=== PATIENT | female | born 1975 | race Caucasian/White ===

== ENCOUNTER 2017-03-04 18:42 | Emergency (ER) | payer MEDICAID, SELFPAY ==
[2017-03-04 18:42] VITALS: BP 152/102; PULSE 102; RESP 18; TEMP 37.1; O2SAT 100; BMI 54.3
--- NOTE | 2017-03-04 20:43 | ED.DCSUM_ITS ---
- ER Visit Summary Date of Service: 03/04/17 Chief Complaint: [Wound] History of Present Illness: The patient is a 42 F [presents the emergency department with a left leg wound. She noticed it Thursday morning. She was seen in the emergency department on Thursday. She was prescribed clindamycin. She filled that Thursday. She has been taking it for a day and a half and it is getting worse. It slightly more red and swollen and more painful. No fevers chills or systemic symptoms she is not diabetic] Physical Examination: [] Heart rate 102 blood pressure elevated 152/102 other vitals within normal limits WN WD NAD PERRL EOMI MMM NECK supple and nontender, no masses RRR no murmur rub or gallop, no peripheral edema, symmetric radial pulses CTAB no respiratory distress ABDOMEN is soft and nontender, normal bowel sounds, no distension, no rebound or guarding Skin shows a small scab lesion in the left lateral leg just above the ankle there is minimal fluctuance she has a moderate amount of surrounding induration and cellulitis that is not circumferential Alert and Oriented x3, CN II-XII in tact, no motor or sensory deficits, gait normal No lymphadenopathy Test Results: [] Emergency Department Course and Treatment: [Area of cellulitis was demarcated with a pen. She was consented for incision and drainage. Incision and drainage was performed see procedure note. Patient was given wound care instructions. She was given doxycycline as she is allergic to Bactrim and Keflex. She was given precautions for which to return. She will follow-up with Dr. Carter within 48 hours Procedure note: Incision and drainage abscess left lower leg skin was cleansed with Betadine Skin was anesthetized with 3 cc of lidocaine locally Cruciate incision was made with moderate amount of purulent return loculations were broken was thoroughly irrigated under pressure Dressing was applied ] Treatment Plan: [] Disposition: [discharge] Impression: [abcess, i&d] This note was generated with [employer] dictation software. It may contain incorrect words, spelling, and punctuation that were not noted in review of the chart prior to signing ED Disposition - Plan for ED Patient: Chief Complaint: Cellulitis Referrals: Frank Pearson MD [Primary Care Provider] -
--- NOTE | 2017-03-04 20:45 | ED.DEP ---
ED Disposition - Plan for ED Patient: Chief Complaint: Cellulitis Instructions: ED Abscess IandD, Discharge Instructions for Cellulitis Prescriptions: Hydrocodone Bitart/Apap 5-325 [[place] 5MG-325MG] 1 tablet PO Q6H PRN PRN #10 tablet PRN Reason: Pain Doxycycline 100 mg PO BID #14 capsule Referrals: Frank Pearson MD [Primary Care Provider] - 2 Days
--- NOTE | 2017-03-04 20:49 | ED.DEP ---
ED Disposition - Plan for ED Patient: Chief Complaint: Cellulitis Instructions: Discharge Instructions for Cellulitis, ED Abscess IandD Prescriptions: Hydrocodone Bitart/Apap 5-325 [[place] 5MG-325MG] 1 tablet PO Q6H PRN PRN #10 tablet PRN Reason: Pain Doxycycline 100 mg PO BID #14 capsule Referrals: Frank Pearson MD [Primary Care Provider] - 2 Days
[2017-03-04 20:53] VITALS: PULSE 77; RESP 18; O2SAT 99
--- NOTE | 2017-03-04 20:54 | ED.RN ---
VERBAL AND WRITTEN D/C INSTRUCTIONS GIVEN. ALL QUESTIONS ANSWERED. GAIT SLOW AND STEADY OUT OF DEPARTMENT.
--- NOTE | 2017-03-04 20:57 | DCINST.ED_ITS ---
ED Disposition - Plan for ED Patient: Chief Complaint: Cellulitis Instructions: Discharge Instructions for Cellulitis, ED Abscess IandD Prescriptions: Hydrocodone Bitart/Apap 5-325 [[place] 5MG-325MG] 1 tablet PO Q6H PRN PRN #10 tablet PRN Reason: Pain Doxycycline 100 mg PO BID #14 capsule Referrals: Frank Pearson MD [Primary Care Provider] - 2 Days
== END 2017-03-04 20:54 | disposition home or self-care (01) ==
LOC: ED 19:34
PROVIDERS: Emergency Provider Emergency Medicine; Family Provider Family Medicine; PCP Family Medicine
DX: L03.116 Cellulitis of left lower limb (principal); F32.9 Major depressive disorder, single episode, unspecified
CPT/HCPCS: 10060; 99282

== ENCOUNTER 2017-05-22 23:20 | Emergency (ER) | payer MEDICAID, SELFPAY ==
[2017-05-22 23:21] VITALS: BP 159/84; PULSE 87; RESP 24; TEMP 36.7; O2SAT 97; BMI 53.1
--- NOTE | 2017-05-23 00:19 | ED.DCSUM_ITS ---
- ER Visit Summary Date of Service: 05/23/17 Chief Complaint: Right thumb injury History of Present Illness: The patient is a 42 F who cut her right thumb on a mandolin for 5 days ago. Patient states the area has become more painful and swollen. She is right-hand dominant and keeps bumping it on things. She has not had fever. She states she initially had some felipe colored fluid draining from the wound, but has not had any drainage the last several days. Physical Examination: Vital signs are significant for blood pressure 159/84, otherwise unremarkable. Patient sitting upright in bed no acute distress. She is nontoxic appearing. Head and neck examination is unremarkable. Heart is regular rate and rhythm. Lung sounds are clear. Abdomen is soft nontender. Right upper extremity examination was a 2 x 4 mm area of skin avulsion to the distal right thumb with surrounding edema. There is no erythematous streak. She has no focal fluctuance. She does have full range of motion. Test Results: [] Emergency Department Course and Treatment: Patient was instructed to soak her hand at least twice a day. She started on doxycycline, first dose given here. Treatment Plan: [] Disposition: Discharge Impression: Skin avulsion right thumb with localized infection This note was generated with [employer] dictation software. It may contain incorrect words, spelling, and punctuation that were not noted in review of the chart prior to signing ED Disposition - Plan for ED Patient: Disposition: Home or Assisted Living Chief Complaint: Wound Instructions: ED Wound Care Prescriptions: Doxycycline Monohydrate 100 mg PO BID #20 capsule Referrals: Frank Pearson MD [Primary Care Provider] - 1 Week
[2017-05-23] MEDS: Doxycycline 100 MG CAPSULE PO (00:33)
== END 2017-05-23 00:34 | disposition home or self-care (01) ==
LOC: ED 05-23 00:24
PROVIDERS: Emergency Provider Emergency Medicine; Family Provider Family Medicine; PCP Family Medicine
DX: S61.001D Unspecified open wound of right thumb without damage to nail, subsequent encounter (principal); L08.9 Local infection of the skin and subcutaneous tissue, unspecified; W26.8XXD Contact with other sharp object(s), not elsewhere classified, subsequent encounter; F32.9 Major depressive disorder, single episode, unspecified; Z86.14 Personal history of Methicillin resistant Staphylococcus aureus infection; Z87.891 Personal history of nicotine dependence
CPT/HCPCS: 99283

== ENCOUNTER 2017-07-30 19:40 | Emergency (ER) | payer MEDICAID, SELFPAY ==
[2017-07-30 19:41] VITALS: BP 154/91; PULSE 87; RESP 16; TEMP 36.6; O2SAT 98; BMI 44.1
--- NOTE | 2017-07-30 20:40 | ED.DCSUM_ITS ---
- ER Visit Summary Date of Service: 07/30/17 Chief Complaint: Rash History of Present Illness: The patient is a 42 F who presents with a rash on her face and neck. Began on Thursday (4 days ago). She was sweating was felt at urgent care yesterday that this could be a yeast infection. She also notes what appears to be a superficial abscess in the right arm and she was put on clindamycin at the urgent care. She is also placed on a Medrol pack. Patient states that spread significantly onto the face and on the neck as well as on the arms. She states is extremely itchy. She denies any new contacts. Physical Examination: Afebrile vital signs are stable On the face there is a blanching rash with no significant increase in heat this involves the forehead and the maxillary sinus regions. There is a rash in the skin folds of the neck could be consistent with a skin candidiasis. There are several excoriated lesions on the arm that looked like maybe they were small pustules and excoriated. Emergency Department Course and Treatment: We will give the patient a dose of Kenalog. I do not believe is been enough time for the medication she was prescribed yesterday to work. I have asked that she follow-up with her doctor early next week or return here if worsening. Impression: 1. Dermatitis This note was generated with [employer] dictation software. It may contain incorrect words, spelling, and punctuation that were not noted in review of the chart prior to signing ED Disposition - Plan for ED Patient: Disposition: Home or Assisted Living Chief Complaint: Rash Instructions: ED Dermatitis Non Specific Rash Referrals: Frank Pearson MD [Primary Care Provider] - 3-5 Days
[2017-07-30] MEDS: Triamcinolone Acetonide 40 MG/ML Vial 80 MG IM (20:47)
[2017-07-30 21:12] VITALS: RESP 16
--- NOTE | 2017-07-30 21:12 | ED.RN ---
REVIEWED D/C INSTRUCTIONS, FOLLOW UP CARE, AND S/S THAT WOULD WARRANT A RETURN TO THE ED WITH PT. PT VERBALIZED AN UNDERSTANDING AND DENIES FURTHER QUESTIONS FOR THIS RN. PT SKIN P/W/D, RESP EVEN AND UNLABORED, PT A7O X 3, NO DISTRESS NOTED. PT AMBULATED OUT OF ED, GAIT STEADY.
== END 2017-07-30 21:13 | disposition home or self-care (01) ==
PROVIDERS: Emergency Provider Emergency Medicine; Family Provider Family Medicine; PCP Family Medicine
DX: L30.9 Dermatitis, unspecified (principal)
CPT/HCPCS: 99282

== ENCOUNTER 2017-08-01 14:27 | Emergency (ER) | payer MEDICAID, SELFPAY ==
[2017-08-01 14:28] VITALS: BP 159/81; PULSE 85; RESP 17; TEMP 36.7; O2SAT 98; BMI 51.8
--- NOTE | 2017-08-01 14:47 | ED.VISSUMM ---
- ER Visit Summary Date of Service: 08/01/17 Chief Complaint: Right facial swelling History of Present Illness: The patient is a 42 F who started having allergic reaction to her face and neck on Thursday. She does not know any medication she may be allergic to. She does have a history of hayfever. She was seen in urgent care started on a Medrol Dosepak. She was also using steroid cream to her neck and an antifungal. She was then seen ER on had a Kenalog shot is continued her steroids. She states her right facial swelling his return is a little worse. She also is having itching. She denies any tongue or lip swelling. Any trouble breathing or wheezing. No trouble swallowing. She does not believe she has never had a reaction like this before. She is currently on clindamycin that was started on Thursday due to a skin infection she has had a history of being a MRSA carrier. The allergic reaction facial swelling started on Thursday before she started the antibiotic. Physical Examination: Well-appearing middle-age female. Vital signs are stable afebrile. She does not look septic or toxic. She does have right periorbital and right facial swelling. Also to her neck. They are red. No sniffing tenderness. She is able to open close both eyes. There is no signs of any type of right eye infection. Neck there is no lymphadenopathy but she has inflamed swollen tissues in the anterior aspect of her neck consistent with allergic reaction. No abscess. Lungs clear to auscultation bilaterally. Heart regular rhythm no murmur. Abdomen obese soft nontender normal bowel sounds no peritoneal signs. She is moving all 4 extremities. Neurovascularly intact. Neurologically she is awake and alert without focal motor deficits. Test Results: None Emergency Department Course and Treatment: Patient seems to have an obvious allergic reaction to her face and neck but of uncertain cause. I do not think she is on enough steroids at this time the urgent care prescribed her a Medrol Dosepak which currently she is only on 12 mg a day. Have her stop that. Give her a dose of prednisone here and place her on 40 mg a day for the next 7 days. She states far she knows she is not diabetic but she did have gestational diabetes and that the current steroids have released her blood sugars which will need to continually need to watch. Treatment Plan: Prednisone 40 g a day for 7 days. Ice to the right side of her face. Motrin for swelling Benadryl for swelling and itching. Watch her blood sugars closely. And follow-up with her primary care physician. Disposition: Discharge Impression: Acute right-sided facial swelling and rash and also on her neck secondary to acute allergic reaction of uncertain etiology This note was generated with [employer] dictation software. It may contain incorrect words, spelling, and punctuation that were not noted in review of the chart prior to signing ED Disposition - Plan for ED Patient: Chief Complaint: Allergic Reaction Referrals: Frank Pearson MD [Primary Care Provider] -
--- NOTE | 2017-08-01 14:51 | ED.DEP ---
ED Disposition - Plan for ED Patient: Disposition: Home or Assisted Living Chief Complaint: Allergic Reaction Instructions: ED Allergic Reaction Local Other Prescriptions: Prednisone [Deltasone] 40 mg PO DAILY 7 Days #7 tab Referrals: Frank Pearson MD [Primary Care Provider] - 3-5 Days if not improving Additional Instructions: Ice pack to decrease the swelling in her face. Motrin also decrease inflammation along with Benadryl for allergic reaction and itching. Prednisone 40 times a day till gone or rash resolves and swelling resolves for at least 2 days. Watch her blood sugars closely. Due to your history of prior gestational diabetes with elevated blood sugars she may be coming diabetic and need to follow this up with your primary care physician to be further evaluated.
[2017-08-01] MEDS: predniSONE 20 MG Tablet 40 MG PO (15:08)
== END 2017-08-01 15:12 | disposition home or self-care (01) ==
LOC: ED 15:02
PROVIDERS: Emergency Provider Emergency Medicine; Family Provider Family Medicine; PCP Family Medicine
DX: R21 Rash and other nonspecific skin eruption (principal); R22.0 Localized swelling, mass and lump, head; Z22.322 Carrier or suspected carrier of Methicillin resistant Staphylococcus aureus; F32.9 Major depressive disorder, single episode, unspecified
CPT/HCPCS: 99283

== ENCOUNTER → 2018-11-22 06:41 | Outpatient (CLI) | payer MEDICAID, SELFPAY ==
--- NOTE | 2018-11-22 06:44 | CT_ITS ---
STUDY: CT MAXILLOFACIAL SINUSES REASON FOR EXAM: Female, 43 years old. Chronic sinusitis RADIATION DOSAGE (If Supplied By Facility): CTDIvol = ( 33.06 ) mGy, DLP = ( 763.6 ) mGycm TECHNIQUE: The patient was scanned in a multi detector CT scanner. High resolution axial imaging was performed without the administration of intravenous contrast material. Sagittal and coronal images were reconstructed. Individualized dose optimization techniques were used for this CT. COMPARISON: None. FINDINGS: FRONTAL SINUSES: Normal aeration, without mucosal inflammatory disease. ETHMOIDAL SINUSES: Normal aeration, without mucosal inflammatory disease. MAXILLARY SINUSES: There is mucosal thickening of the left maxillary sinus and evidence of prior surgery in both maxillary sinuses. SPHENOIDAL SINUSES: Normal aeration, without mucosal inflammatory disease. There is patency of the bilateral maxillary infundibuli with normal uncinate processes, ethmoid bullae, and hiatus semilunaris. There is mucosal thickening of the left-sided inferior turbinate with skirts the inferior aspect of the left nasal canal. There is minimal narrowing of the nasal passageway. Diminutive bilateral middle inferior turbinates. Normal midline nasal septum. The visualized osseous structures are normal. The visualized bilateral orbital contents are normal. CT/Sinus/Facial Bone IMPRESSION: Chronic left maxillary sinusitis postoperative change. Findings as detailed above. Electronically Signed: Dixie Perez MD at 23:17 EDT Tel , Service support ,
== END ==
PROVIDERS: Family Provider Family Medicine; PCP Family Medicine; Referring Provider Otolaryngology; Visit Provider Otolaryngology
DX: J32.2 Chronic ethmoidal sinusitis (principal)
CPT/HCPCS: 70486

== ENCOUNTER → 2018-12-13 15:43 | Outpatient (CLI) | payer MEDICAID, SELFPAY | PROVIDERS: Family Provider Family Medicine; PCP Family Medicine; Referring Provider Otolaryngology; Visit Provider Otolaryngology | DX: J32.0 Chronic maxillary sinusitis (principal) | CPT/HCPCS: 87070; 87077; 87186; 87205 ==

== ENCOUNTER 2019-04-21 21:44 | Emergency (ER) | payer MEDICAID, SELFPAY ==
[2019-04-21 21:46] VITALS: BP 136/83; PULSE 127; RESP 16; TEMP 37.8; O2SAT 99; BMI 53.6
--- NOTE | 2019-04-21 22:31 | ED.VIS.GEN ---
History of Present Illness Chief Complaint: Fever Informant: Patient Onset: Today Current Severity: Moderate Maximum Severity: Moderate Narrative: Patient presents with chest congestion, cough, fever, body aches. She states that she was staying at [facility] this past week with her daughter who was admitted. She states her return there there she tends to get a lot of congestion secondary to the dry air. Today she developed body aches and fever. She has not yet taken anything for her symptoms. - Past Medical History (1) Migraines Status: Chronic (2) Depression Status: Chronic (3) Hx of cholecystectomy Status: Chronic Past Medical History - Allergies and Home Meds Allergies/Adverse Reactions: Allergies cephalexin monohydrate [From Keflex] Allergy (Verified 04/21/19 21:48) Rash latex Adverse Reaction (Verified 04/21/19 21:48) Rash sulfamethoxazole [From Bactrim] Adverse Reaction (Verified 04/21/19 21:48) Other trimethoprim [From Bactrim] Adverse Reaction (Verified 04/21/19 21:48) Other FLU SHOT Allergy (Uncoded 04/21/19 21:48) Other Primary Care Physician: Frank Pearson MD [Primary Care Provider] - Prior records reviewed: Yes Lives: With Family Smoking Status: Never smoker Review of Systems General: Reports: Fever Eyes: Denies: Visual changes - bilaterally ENT: Reports: Sore throat. Denies: Bilateral ear pain Cardiovascular: Denies: Chest pain Respiratory: Reports: Dyspnea, Cough, Sputum Gastrointestinal: Reports: Nausea. Denies: Abdominal pain, Vomiting Musculoskeletal: Reports: Myalgias. Denies: Extremity Pain Skin: Denies: Rash Neurological: Reports: Headache Hematologic: Denies: Easy bruising, Easy bleeding Allergy: Denies: Uticaria Physical Exam Vital Signs/Narrative: Vital Signs Temp Pulse Resp BP Pulse Ox 04/21/19 21:46 100.0 F H 127 H 16 136/83 H 99 Inital Vital Signs reviewed: Yes General: Well nourished, Well developed Head: Normocephalic ENT: Moist mucous membranes Neck: Supple Cardiovascular: Regular rhythm, Tachycardia Respiratory: No distress, CTA bilaterally Abdomen: Soft, Nontender Extremities: Nontender Skin: Normal color, No rash Neurological: Alert, Oriented x3 Psychological: Normal affect Diagnostic/Tx/Re-eval Impressions Chest X-Ray 04/21/19 22:35 IMPRESSION: No evidence of focal airspace disease. Electronically Signed: Mele Guidry DO at 23:01 EDT , Service support , 04/21/19 22:35 Chest 1 View (Portable) [RAD] Stat 04/21/19 22:45 Mucosa - Nose Influenza Types A,B Direct FA ([facility]) - Final Influenzae A - Medical Decision Making Patient was given naproxen and Tylenol. Test results discussed with her. She is interested in taking Tamiflu. First dose will be given here and prescription be sent to the pharmacy for her. ED Disposition - Plan for ED Patient: Disposition: Home or Assisted Living Diagnosis: Influenza A Instructions: INFLUENZA (Adult) Prescriptions: Oseltamivir Phosphate [Tamiflu] 75 mg PO BID #10 cap Transmission Status: Pending to [facility]/pharmacy #[id number] Referrals: Frank Pearson MD [Primary Care Provider] - 1 Week if not improving
--- NOTE | 2019-04-21 22:35 | RAD_ITS ---
STUDY: X-RAY CHEST REASON FOR EXAM: Female, 44 years old. COUGH FEVER WITH CHEST CONGESTION AND SOB TECHNIQUE: Single AP portable view of the chest. COMPARISON: 26 January 2017 FINDINGS: The lungs are clear and expanded. Calcified granuloma overlies the right upper mid lung. There is no demonstrated pleural abnormality. Normal size heart. Normal mediastinum and raji. Normal visualized pulmonary arteries. Normal visualized aortic arch and descending thoracic aorta. Normal visualized thoracic spine. Normal visualized ribs, clavicles, and shoulders. There is no demonstrated abnormality of the visualized soft tissue structures of the upper abdomen. RAD/Chest 1 View (Portable) IMPRESSION: No evidence of focal airspace disease. Electronically Signed: Mele Guidry DO at 23:01 EDT , Service support ,
[2019-04-21] MEDS: Naproxen 500 MG Tablet PO (23:02)
[2019-04-21 23:06] VITALS: BP 148/90; PULSE 120; PULSE 122; RESP 17; RESP 18; TEMP 38.6; O2SAT 100; O2SAT 99
[2019-04-21] MEDS: Acetaminophen 500 MG Tablet 1000 MG PO (23:58)
[2019-04-21 23:59] VITALS: PULSE 135; RESP 15; O2SAT 98
[2019-04-21] MEDS: Oseltamivir Phosphate 75 MG Capsule PO (23:59)
== END 2019-04-22 | disposition home or self-care (01) ==
PROVIDERS: Emergency Provider Emergency Medicine; PCP Family Medicine
DX: J10.1 Influenza due to other identified influenza virus with other respiratory manifestations (principal); F32.9 Major depressive disorder, single episode, unspecified; G43.909 Migraine, unspecified, not intractable, without status migrainosus; Z88.1 Allergy status to other antibiotic agents; Z88.2 Allergy status to sulfonamides; Z90.49 Acquired absence of other specified parts of digestive tract
CPT/HCPCS: 71045; 87804; 99283

== ENCOUNTER 2019-10-28 12:08 | Emergency (ER) | payer MEDICAID, SELFPAY ==
[2019-10-28 12:08] VITALS: BP 152/91; PULSE 98; RESP 18; TEMP 35.8; O2SAT 98; BMI 51.6
--- NOTE | 2019-10-28 12:22 | ED.DEP ---
ED Disposition - Plan for ED Patient: Instructions: ED LUMBAR SPRAIN/STRAIN Prescriptions: Hydrocodone Bitart/Apap 5-325 [[place] 5MG-325MG] 1 tab PO Q6H PRN PRN 3 Days #8 tab PRN Reason: Pain Prescription Printed Referrals: Frank Pearson MD [Primary Care Provider] -
--- NOTE | 2019-10-28 12:25 | ED.DCSUM_ITS ---
- ER Visit Summary Date of Service: 10/28/19 Chief Complaint: Back pain History of Present Illness: The patient is a 44 F presenting with back pain. Patient states this started on Thursday. She states she reached forward to pick something up and had sudden pain in her lower back. She did not fall to the g round. She has tried Flexeril and ibuprofen since that time. She denies numbness or weakness. Denies bowel or bladder incontinence. Denies fever. She is able to ambulate with pain. Physical Examination: Vitals are stable. Patient is afebrile. Alert no acute distress. HEENT exam is unremarkable. Neck is supple. Lungs are clear and equal bilaterally. Heart is regular rate and rhythm. Abdomen is soft nontender nondistended. Back: Left paraspinal lumbar muscle tenderness, no midline tenderness. Straight leg raise negative bilaterally. Extremities are unremarkable. Skin is warm and dry. No focal neurologic deficit. Normal strength and sensation Remainder of exam is unremarkable. Emergency Department Course and Treatment: She drove herself to the emergency department. Patient was given Toradol IM. She was given prescription for short course of [place]. Advised to continue ibuprofen at home. Advised to follow-up with her primary care physician. Advised return to the ED for worsening complaints. Disposition: Discharge home Impression: Lumbar strain This note was generated with [employer] dictation software. It may contain incorrect words, spelling, and punctuation that were not noted in review of the chart prior to signing ED Disposition - Plan for ED Patient: Instructions: ED LUMBAR SPRAIN/STRAIN Prescriptions: Hydrocodone Bitart/Apap 5-325 [[place] 5MG-325MG] 1 tab PO Q6H PRN PRN 3 Days #8 tab PRN Reason: Pain Prescription Printed Referrals: Frank Pearson MD [Primary Care Provider] -
[2019-10-28] MEDS: Ketorolac 60 MG/2 ML Vial IM (12:37)
== END 2019-10-28 12:53 | disposition home or self-care (01) ==
PROVIDERS: Emergency Provider Emergency Medicine; PCP Family Medicine
DX: S39.012A Strain of muscle, fascia and tendon of lower back, initial encounter (principal); X58.XXXA Exposure to other specified factors, initial encounter; E11.9 Type 2 diabetes mellitus without complications; Z90.49 Acquired absence of other specified parts of digestive tract; F32.9 Major depressive disorder, single episode, unspecified
CPT/HCPCS: 99282

== ENCOUNTER 2019-12-14 21:14 | Emergency (ER) | payer MEDICAID, SELFPAY ==
[2019-12-14 21:15] VITALS: BP 158/95; PULSE 90; RESP 18; TEMP 36.3; O2SAT 98; BMI 51.3
--- NOTE | 2019-12-14 21:41 | ED.DCSUM_ITS ---
History of Present Illness Chief Complaint: Abscess Informant: Patient Narrative: Patient presents with facial abscess for the past few days no fever chills no difficulty swallowing. She had a pimple she popped it and now has pain and induration to left lower face. No neck involvement. Past Medical History - Allergies and Home Meds Allergies/Adverse Reactions: Allergies cephalexin monohydrate [From Keflex] Allergy (Verified 12/14/19 21:17) Rash latex Adverse Reaction (Verified 12/14/19 21:17) Rash sulfamethoxazole [From Bactrim] Adverse Reaction (Verified 12/14/19 21:17) Other trimethoprim [From Bactrim] Adverse Reaction (Verified 12/14/19 21:17) Other FLU SHOT Allergy (Uncoded 12/14/19 21:17) Other Primary Care Physician: Frank Pearson MD [Primary Care Provider] - Past Medical History: - - Diabetes Smoking Status: Former smoker Review of Systems General: Denies: Fever Eyes: Denies: Visual changes - bilaterally ENT: Reports: - - Facial abscess Cardiovascular: Reports: Chest pain Musculoskeletal: Denies: Extremity Pain Skin: Reports: Abscess Neurological: Denies: Headache Hematologic: Denies: Easy bruising, Easy bleeding Physical Exam Vital Signs/Narrative: Vital Signs Temp Pulse Resp BP Pulse Ox 12/14/19 21:15 97.4 F L 90 18 158/95 H 98 General: Well nourished, Well developed ENT: Moist mucous membranes, - - There is a 2 cm left lower facial abscess with slight surrounding cellulitis no intraoral abscess, normal soft palate. No neck involvement normal voice Neck: Supple, Nontender, No lymphadenopathy Cardiovascular: Regular rate Skin: - - Abscess and cellulitis as above Neurological: Normal Strength, Normal Sensation Diagnostic/Tx/Re-eval - Medical Decision Making Abscess was drained. Patient will be discharged in stable condition with antibiotics Procedures Procedure(s): Incision and drainage. 1% lidocaine, 3 mL of injected through a 25-gauge needle. I used a #10 blade. Pus was expectorated. Loculations broken. Patient tolerated procedure well ED Disposition - Plan for ED Patient: Disposition: Home or Assisted Living Instructions: ED Abscess Incision And Drainage Prescriptions: Clindamycin [Cleocin] 300 mg PO 4X/DAY #80 cap Transmission Status: Pending to [facility]/pharmacy #[id number] Referrals: Frank Pearson MD [Primary Care Provider] - 3-5 Days
[2019-12-14] MEDS: Clindamycin HCl 150 MG Capsule 300 MG PO (21:50)
== END 2019-12-14 21:55 | disposition home or self-care (01) ==
PROVIDERS: Emergency Provider Emergency Medicine; PCP Family Medicine
DX: L02.01 Cutaneous abscess of face (principal); E11.9 Type 2 diabetes mellitus without complications; Z88.1 Allergy status to other antibiotic agents; Z88.2 Allergy status to sulfonamides
CPT/HCPCS: 99283

== ENCOUNTER 2020-09-11 09:18 | Emergency (ER) | payer MEDICAID, SELFPAY ==
[2020-09-11 09:19] VITALS: BP 163/90; PULSE 82; RESP 18; TEMP 36.2; O2SAT 98; BMI 52.7
--- NOTE | 2020-09-11 09:34 | ED.VIS.LOWEX ---
HPI History of Present Illness Chief Complaint: Lower Extremity Injury Detail of Chief Complaint: Atraumatic right hip pain Informant: patient Occured/Mechanism Mechanism/Context: Yes unknown Onset/Context/Timing Onset: Yesterday Context: Gradual Onset Timing: Continuous Quality of Pain: Sharp and Aching Current Severity: Mild Maximum Severity: Mild Associated Symptoms Associated Symptoms: Negative for Parasthesia, Weakness and Loss of Funtion Narrative Narrative: 45-year-old female history of [id number] diabetes, hypothyroidism and anemia. States she had atraumatic right hip pain beginning last evening. Gradual onset. Worse with movement. Initially occurred when she was stepping out of her car. Denies any fall injury or any type of trauma to remember. No fever or redness. No prior hip surgery. Denies back pain. Prior similar symptoms: No Recent Illness/Hospitalization: No [facility] Medical History Carpal tunnel syndrome of right wrist Hyperlipidemia Hypothyroid Migraines Plantar fasciitis of left foot Home Medications Venlafaxine Xr [Effexor Xr] 75 mg PO DAILY 06/21/15 [History Last Taken 04/21/19] venlafaxine 150 mg PO DAILY 01/26/17 [History Last Taken 04/21/19] metformin 500 mg PO BID 04/21/19 [History Last Taken 04/21/19] clindamycin HCl 300 mg PO 4X/DAY #80 cap 12/14/19 [Rx Last Taken Unknown] levothyroxine 75 mcg PO DAILY 12/14/19 [History Last Taken Unknown] methocarbamol 750 mg PO TID 12/14/19 [History Last Taken Unknown] aspirin 81 mg PO DAILY 09/11/20 [History Last Taken Unknown] cholecalciferol (vitamin D3) 125 mcg PO DAILY 09/11/20 [History Last Taken Unknown] epinephrine 0.15 mg IM Q30M PRN 09/11/20 [History Last Taken Unknown] ferrous sulfate 324 mg PO DAILY 09/11/20 [History Last Taken Unknown] fexofenadine 180 mg PO DAILY 09/11/20 [History Last Taken Unknown] hydrocodone-acetaminophen 1 tab PO Q4H PRN 4 Days #14 tab 09/11/20 [Rx Last Taken Unknown] Allergy/AdvReac Type Severity Reaction Status Date / Time cephalexin monohydrate Allergy Rash Verified 09/11/20 09:19 [From Keflex] latex AdvReac Rash Verified 09/11/20 09:19 sulfamethoxazole AdvReac Other Verified 09/11/20 09:19 [From Bactrim] trimethoprim [From Bactrim] AdvReac Other Verified 09/11/20 09:19 FLU SHOT Allergy Other Uncoded 09/11/20 09:19 Surgical History H/O carpal tunnel repair History of cholecystectomy Social History Smoking Status: Never smoker ROS ROS ED ROS Narrative Denies recent illness. Review of Systems ROS Unobtainable: Denies due to encephalopathy Constitutional Constitutional ED: Denies chills or fever(s) Eyes Eyes: Denies change in vision ENT ENT ED: Denies ear pain Cardiovascular Cardiovascular: Denies chest pain Respiratory/Chest Respiratory/Chest: Denies dyspnea Gastrointestinal Gastrointestinal: Denies abdominal pain, diarrhea, nausea or vomiting Genitourinary Genitourinary ED: Denies dysuria Musculoskeletal Musculoskeletal: Denies myalgias Integumentary Denies rash Neurologic Neurologic: Denies headache(s) Psychiatric Psychiatric: Denies depression Endocrine Endocrinology: Denies polyuria Hematologic/Lymphatic Hematologic/Lymphatic: Denies easy bruising Allergic/Immunologic Allergic/Immunologic ED: Denies urticaria EXAM Physical Exam Narrative Exam Narrative: Middle-aged female no acute distress. Vital signs stable. Afebrile. Lungs are clear. Heart regular rhythm no murmur. Abdomen obese but soft nontender normal bowel sounds no peritoneal signs. Back spine nontender. SI joints nontender. She has mild tenderness to her right hip primarily in the groin region. She has mild discomfort with range of motion but has normal range of motion. There is no redness or warmth. There is no swelling. She has full flexion-extension of the right hip, knee ankle and foot. Dorsi plantar flexion of the right foot. Normal DP pulse and sensation. Neurologic exam unremarkable. Const Vital Signs: 09/11/20 09:19 Temperature 97.1 F L Temperature Source Temporal Pulse Rate 82 Respiratory Rate 18 Blood Pressure 163/90 H Blood Pressure Mean 114 Pulse Ox 98 Oxygen Delivery Method Room Air Positive well nourished and well developed General Appearance ED: well developed and NAD HEENT Reports moist mucous membranes normocephalic and atraumatic; Negative for trauma or tenderness Eyes PERRL Neck full ROM and supple Thyroid: Negative for tender Chest Wall inspection of chest normal and palpation of chest normal Resp normal respiratory effort, no retractions and clear to auscultation bilaterally Auscultation: Negative for rales, rhonchi or wheezes Cardio regular rate, regular rhythm, S1 normal heart sound, S2 normal heart sound and no murmurs GI non-tender, non-distended and no masses Auscultation: normoactive bowel sounds Palpation: soft; Negative for tender or guarding Back/Spine no CVA tenderness General Back: Negative for CVA tenderness Cervical Spine: Negative for cervical spine tenderness Thoracic Spine / Upper Back: Negative for thoracic spinal tenderness Lumbar Spine / Lower Back: Negative for lumbar spinal tenderness Extremity normal to inspection and full ROM Extremity Narrative: Tender right hip. No redness or swelling. Normal range of motion. General Extremety ED: Negative for cyanosis or edema General Extremity: Negative for cyanosis or edema Psych mental status grossly normal Skin Rashes: no rashes MDM MDM MDM Narrative Medical decision making narrative: 45-year-old female atraumatic right hip pain. Will be treated with Motrin for pain. X-rays being obtained. X-rays were unremarkable. I reviewed examined the patient again at 1215. No change. The hip itself is not red or swollen. The anterior inguinal area there is no hernia or mass or tenderness. Patient be discharged home she already uses ibuprofen 3 times a day. She sees [facility] orthopedics here in [place]. She will be written for 10 Vicodin for pain. Radiography Diagnostic Testing: Radiology Impression Hip/Pelvis X-Ray 09/11/20 09:50 IMPRESSION: Mild arthrosis of the right hip. Electronically Signed: Michele Rivers MD at 10:32 EDT Tel , Service support , Pelvis and right hip x-ray 3 views interpreted by myself the radiologist shows chronic changes but no acute process. No fracture. No significant arthritis. No dislocation. Discharge Plan Triage Chief Complaint: Lower Extremity Injury ED Provider: Nathan Hernandez Dx/Rx/DC Orders Clinical Impression: Acute hip pain Instructions: ED Hip Strain Prescriptions: New hydrocodone-acetaminophen 5-325 mg tablet 1 tab PO Q4H PRN (Reason: pain) 4 Days Qty: 14 RF: 0 No Action Venlafaxine Xr [Effexor Xr] 75 MG capsule 75 mg PO DAILY RF: 0 venlafaxine 150 MG capsule 150 mg PO DAILY RF: 0 metformin 500 MG tablet 500 mg PO BID RF: 0 methocarbamol 750 MG tablet 750 mg PO TID RF: 0 levothyroxine 50 MCG tablet 75 mcg PO DAILY RF: 0 clindamycin HCl 150 MG capsule 300 mg PO 4X/DAY Qty: 80 RF: 0 epinephrine 0.15 mg/0.3 mL Auto-Injector 0.15 mg IM Q30M PRN (Reason: Anaphylaxis) RF: 0 fexofenadine 180 mg Tablet 180 mg PO DAILY RF: 0 aspirin 81 mg Tablet,Delayed Release (Dr/Ec) 81 mg PO DAILY RF: 0 ferrous sulfate 324 mg (65 mg iron) Tablet,Delayed Release (Dr/Ec) 324 mg PO DAILY RF: 0 cholecalciferol (vitamin D3) 125 mcg (5,000 unit) Tablet 125 mcg PO DAILY RF: 0 Primary Care Provider: Frank Pearson Referrals: Luigi Ortiz MD [NON-STAFF] - As soon as possible Frank Pearson MD [Primary Care Provider] - Activity Restrictions/Additional Instructions: Ice to the area that hurts in the right hip. Continue your Motrin for pain and inflammation. [place] for more severe pain. Call follow-up with the [facility] orthopedic people with a you see. We do not have a specific cause for the pain today. Disposition Disposition: Home, Self Care
--- NOTE | 2020-09-11 09:50 | RAD_ITS ---
STUDY: X-RAY - PELVIS AND RIGHT HIP REASON FOR EXAM: Right hip pain, no specific injury. TECHNIQUE: 2 views of the pelvis and hip. COMPARISON: Radiographs 01/26/2017. FINDINGS: Normal visualized soft tissue structures. Normal bilateral iliac wings, sacroiliac joints and visualized sacrum. Normal bilateral superior and inferior pubic rami. Normal pubic symphysis. Normal bilateral ischial tuberosities. Normal visualized femoral head. Normal acetabulum. There are small marginal osteophytes and mild joint space narrowing of the superior medial right hip joint. RAD/HIP, UNI W/ Pelvis 2-3 Views IMPRESSION: Mild arthrosis of the right hip. Electronically Signed: Michele Rivers MD at 10:32 EDT Tel , Service support ,
[2020-09-11] MEDS: Ibuprofen 400 MG Tablet 800 MG PO (10:26)
== END 2020-09-11 12:29 | disposition home or self-care (01) ==
PROVIDERS: Emergency Provider Emergency Medicine; PCP Family Medicine
DX: M25.551 Pain in right hip (principal); Z90.49 Acquired absence of other specified parts of digestive tract; E78.5 Hyperlipidemia, unspecified; E03.9 Hypothyroidism, unspecified; E11.9 Type 2 diabetes mellitus without complications; Z79.82 Long term (current) use of aspirin; Z79.84 Long term (current) use of oral hypoglycemic drugs
CPT/HCPCS: 73502; 99283

== ENCOUNTER 2022-08-07 04:02 | Emergency (ER) | payer MEDICAID, SELFPAY ==
[2022-08-07 04:09] VITALS: BP 114/70; PULSE 77; RESP 16; TEMP 36.2; O2SAT 99; BMI 48.9
--- NOTE | 2022-08-07 04:20 | EKG12_ITS ---
Test Reason : DYSRHYTHMIA Blood Pressure : / mmHG Vent. Rate : 071 BPM Atrial Rate : 071 BPM P-R Int : 162 ms QRS Dur : 090 ms QT Int : 410 ms P-R-T Axes : 027 -12 039 degrees QTc Int : 445 ms Normal sinus rhythm Cannot rule out Anterior infarct , age undetermined Abnormal ECG Confirmed by DENI RODRIGUEZ, WILL ([id number]), news assignment editor CORNELL MACHADO ([id number]) on 08/07/2022 10:45:54 AM Referred By: Confirmed By:WILL CHEEMA MD
--- NOTE | 2022-08-07 04:20 | RAD_ITS ---
STUDY: X-RAY CHEST REASON FOR EXAM: Female, 47 years old. Chest pain TECHNIQUE: Single AP portable view of the chest. COMPARISON: April 21, 2019 chest x-ray FINDINGS: The lungs are clear and expanded. There is no demonstrated pleural abnormality. Normal size heart. Normal mediastinum and raji. Normal visualized pulmonary arteries. Normal visualized aortic arch and descending thoracic aorta. There are diffuse degenerative changes of the visualized thoracic spine. Normal visualized ribs, clavicles, and shoulders. There is no demonstrated abnormality of the visualized soft tissue structures of the upper abdomen. RAD/Chest 1 View (Portable) IMPRESSION: No demonstrated acute cardiopulmonary process. Electronically Signed: Dixie Perez MD at 5:12 EDT ,
--- NOTE | 2022-08-07 04:29 | ED.VIS.CHEST ---
HPI History of Present Illness Chief Complaint: Palpitations Detail of Chief Complaint: Pain-free. No chest pain. Informant: patient Onset/Context/Timing Onset: Days Activity at onset: gradual Timing: Intermittent Narrative Narrative: 47-year-old female history of hypothyroidism and diabetes. States the last several days with exertion she notices palpitations. Really denies any shortness of breath. Denies any chest pain. No leg pain or swelling. No recent travel, surgery or immobilization. No history of cardiac disease or dysrhythmias. Bowel 1 to 2 weeks ago she had some diarrhea but that is all since resolved. Denies any melena. No hemoptysis. Prior Similar Symptoms: No Recent Illness/Hospitalization: No CVD Risk Factors: Positive for Diabetes PE Risk Factors: Negative for Recent Travel/Surgery, Recent Immobilization, Prior DVT or PE, Cancer or OCP + Smoking + >/=35 TAD Risk Factors: Negative for Marfan's Syndrome [facility] Medical History Carpal tunnel syndrome of right wrist Hyperlipidemia Hypothyroid Migraines Plantar fasciitis of left foot Home Medications Venlafaxine Xr [Effexor Xr] 75 mg PO DAILY 06/21/15 [History Last Taken 04/21/19] venlafaxine 150 mg capsule,extended release 24 hr 150 mg PO DAILY 01/26/17 [History Last Taken 04/21/19] metformin 500 mg tablet,extended release 24 hr 500 mg PO BID 04/21/19 [History Last Taken 04/21/19] clindamycin HCl 150 mg capsule 300 mg (2 x 150 mg) PO 4X/DAY #80 caps 12/14/19 [Rx Last Taken Unknown] levothyroxine 50 mcg tablet 75 mcg PO DAILY 12/14/19 [History Last Taken Unknown] methocarbamol 750 mg tablet 750 mg PO TID 12/14/19 [History Last Taken Unknown] aspirin 81 mg tablet,delayed release 162 mg PO DAILY 09/11/20 [History Last Taken Unknown] cholecalciferol (vitamin D3) 125 mcg (5,000 unit) tablet 125 mcg PO DAILY 09/11/20 [History Last Taken Unknown] epinephrine 0.15 mg/0.3 mL injection,auto-injector 0.15 mg IM Q30M PRN Anaphylaxis 09/11/20 [History Last Taken Unknown] ferrous sulfate 324 mg (65 mg iron) tablet,delayed release 324 mg PO DAILY 09/11/20 [History Last Taken Unknown] fexofenadine 180 mg tablet 180 mg PO DAILY 09/11/20 [History Last Taken Unknown] hydrocodone-acetaminophen 5-325mg 5mg-325mg 1 tab PO Q4H PRN pain 4 days #14 tabs 09/11/20 [Rx Last Taken Unknown] atorvastatin 20 mg tablet 20 mg PO DAILY 08/07/22 [History Last Taken Unknown] bupropion HCl 150 mg 24 hr tablet, extended release 150 mg PO DAILY 08/07/22 [History Last Taken Unknown] dulaglutide 0.75 mg/0.5 mL subcutaneous pen injector (Trulicity) 1.5 mg subcut .week 08/07/22 [History Last Taken Unknown] Allergy/AdvReac Type Severity Reaction Status Date / Time cephalexin monohydrate Allergy Rash Verified 08/07/22 04:04 [From Keflex] Influenza Virus Vaccines Allergy NEEDS Verified 08/07/22 04:04 FOLLOW-UP latex AdvReac Rash Verified 08/07/22 04:04 sulfamethoxazole AdvReac Other Verified 08/07/22 04:04 [From Bactrim] trimethoprim [From Bactrim] AdvReac Other Verified 08/07/22 04:04 Surgical History H/O carpal tunnel repair History of cholecystectomy Social History Smoking Status: Never smoker ROS ROS ED ROS Narrative Denies recent illness other than diarrhea 1-1/2 weeks ago. Review of Systems ROS Unobtainable: Denies due to encephalopathy Constitutional Constitutional ED: Denies fever(s) Eyes Eyes: Reports none ENT ENT ED: Denies ear pain Cardiovascular Cardiovascular: Reports as per HPI, palpitations and racing heartbeat; Denies chest pain Respiratory/Chest Respiratory/Chest: Denies cough or dyspnea Gastrointestinal Gastrointestinal: Reports diarrhea; Denies abdominal pain, constipation, melena, nausea or vomiting Genitourinary Genitourinary ED: Denies dysuria or hematuria Musculoskeletal Musculoskeletal: Denies arthralgias Integumentary Denies abscess Neurologic Neurologic: Denies headache(s) Psychiatric Psychiatric: Denies anxiety Endocrine Endocrinology: Denies cold intolerance Hematologic/Lymphatic Hematologic/Lymphatic: Denies easy bleeding Allergic/Immunologic Allergic/Immunologic ED: Denies mouth swelling EXAM Physical Exam Narrative Exam Narrative: 47-year-old female no acute distress. Vital signs stable afebrile. Current heart rate is in the 70s. Pulse ox 9 9% on room air no signs hypoxia. H EENT exam unremarkable. Neck nontender. Lungs clear to auscultation bilaterally. Heart regular rate and rhythm rate about 75 no murmur. Chest wall nontender. Abdomen soft nontender. Moving all 4 extremities. Calves are nontender without edema or cords. Equal symmetrical radial pulses. Back nontender. Neurologically she is awake alert. No focal motor deficits. Const Vital Signs: 08/07/22 04:09 08/07/22 04:11 08/07/22 04:42 Temperature 97.2 F L Temperature Source Temporal Pulse Rate 77 Respiratory Rate 16 Respiratory Effort Normal Respiratory Pattern Normal Blood Pressure 114/70 Blood Pressure Mean 84 Pulse Ox 99 Oxygen Delivery Method Room Air Room Air Positive well nourished, well developed and obese; Negative for cachectic, contractures or unkempt General Appearance ED: well developed and NAD; Negative for unkempt, cachectic, contractures or pallor Nutritional Appearance: obese; Negative for cachectic HEENT Reports moist mucous membranes normocephalic and atraumatic; Negative for trauma or tenderness Eyes PERRL and EOMs intact bilaterally General Eye ED: Negative for pale conjunctiva or scleral icterus Neck no lymphadenopathy, supple and no JVD General: Negative for tenderness Chest Wall inspection of chest normal and palpation of chest normal Chest: Negative for tenderness Resp normal respiratory effort and clear to auscultation bilaterally Effort and Inspection: Negative for respiratory distress Auscultation: Negative for rales, rhonchi or wheezes Cardio regular rate, regular rhythm, S1 normal heart sound, S2 normal heart sound and no murmurs Rate: Negative for bradycardia or tachycardic Peripheral Pulses: pulses 2+ throughout GI normal to inspection, nondistended, normoactive bowel sounds, soft to palpation, non-tender, non-distended and no masses Back/Spine no CVA tenderness and no thoracic nor lumbar tenderness General Back: Negative for CVA tenderness Cervical Spine: Negative for cervical spine tenderness Extremity normal to inspection General Extremety ED: Negative for edema, pulses abnormal or tenderness General Extremity: Negative for edema or pulses abnormal Neuro oriented x3 and CN's II-XII intact bilaterally Sensorium / Orientation: awake, alert, oriented to person, oriented to place and oriented to time; Negative for confused, lethargic or stuporous Motor Exam: strength 5/5 throughout Psych mental status grossly normal Appearance: Negative for unkempt Attitude: No agitated Mood & Affect: Negative for depressed, anxious or tearful Skin no rashes or lesions noted and no wounds General Skin Exam: Negative for jaundice or pallor Rashes: No rashes noted Trauma: Negative for abrasion or laceration MDM MDM MDM Narrative Medical decision making narrative: 47-year-old diabetic with hypothyroidism complaining of palpitations. There is significant chest pain. No dyspnea. Primarily with exertion she has had these palpitations. Currently symptom-free. She undergo cardiac work-up. Exam is benign. Vital signs are stable. Repeat exam patient is doing well at 5:26 AM patient doing well. Will be discharged home. Patient I discussed all of her test results. Outpatient follow-up. We do not have a specific cause for symptoms. Her labs, chest x-ray and EKG were unremarkable. History & Record Review Discussion w/independent historian: Patient Additional record(s) reviewed:: Prior inpatient record, Prior outpatient record, Prior ED visit and Prior labs Lab Data Attestation: I reviewed the patient's lab results. Lab results narrative: CBC is unremarkable. White count 8. H&H 12.5 and 38. Platelets 240. Electrolytes show a gap of 4. Normal BUN and creatinine of 17 and 0.9. Glucose 116. Troponin normal at 4. TSH normal at 1.69. Labs: Laboratory Results - last 24 hr 08/07/22 04:35 WBC 8.7 RBC 4.09 L Hgb 12.5 Hct 38.8 MCV 94.9 MCH 30.6 MCHC 32.2 RDW Std Deviation 45.5 H RDW Coeff of Sariah 13.1 Plt Count 240 MPV 9.6 Immature Gran % (Auto) 0.500 Neut % (Auto) 59.2 Lymph % (Auto) 30.7 [place] % (Auto) 5.5 Eos % (Auto) 3.6 Baso % (Auto) 0.5 Absolute Neuts (auto) 5.2 Absolute Lymphs (auto) 2.67 Nucleated RBC % 0 Sodium 140 Potassium 3.9 Chloride 107 Carbon Dioxide 29.0 Anion Gap 4 L BUN 17 Creatinine 0.91 Estim Creat Clear Calc 71.55 Est GFR (MDRD) Af Amer 85 Est GFR (MDRD) Non-Af 70 BUN/Creatinine Ratio 18.7 Glucose 116 H Calcium 8.9 Troponin I High Sens 4 TSH 1.69 Radiography Chest X-Ray - ED: 1 View, Read by ED Physician, Heart, Lungs, Mediastinum, Bony Structures, No Acute Disease and Chronic Changes Diagnostic Testing: Clinical Impression(s) from Imaging Studies Chest X-Ray 08/07/22 04:20 IMPRESSION: No demonstrated acute cardiopulmonary process. Electronically Signed: Dixie Perez MD at 5:12 EDT , Chest x-ray, portable, single view interpreted both by myself and radiologist shows no acute abnormality. Normal cardiac silhouette. No infiltrate. No effusions. Rhythm Strip Rhythm Strip: Sinus Rhythm Rate: 71 Ectopy: None EKG Initial EKG: Attestation: I personally reviewed and interpreted this EKG as follows: Interpretation: Sinus Rhythm and No Acute Injury Pattern Comments: Normal sinus rhythm rate of 71 no acute signs of ME or ischemia. No dysrhythmia. Discharge Plan Triage Chief Complaint: Palpitations ED Provider: Nathan Hernandez Dx/Rx/DC Orders Clinical Impression: Heart palpitations, History of diabetes mellitus Instructions: ED Palpitations Prescriptions: No Action Venlafaxine Xr [Effexor Xr] 75 MG capsule 75 mg PO DAILY Patient Comments: DEPRESSION venlafaxine 150 MG capsule 150 mg PO DAILY metformin 500 MG tablet 500 mg PO BID methocarbamol 750 MG tablet 750 mg PO TID levothyroxine 50 MCG tablet 75 mcg PO DAILY clindamycin HCl 150 MG capsule 300 mg PO 4X/DAY Qty: 80 0RF Hold Instructions: Order Completed epinephrine 0.15 mg/0.3 mL Auto-Injector 0.15 mg IM Q30M PRN (Reason: Anaphylaxis) fexofenadine 180 mg Tablet 180 mg PO DAILY aspirin 81 mg Tablet,Delayed Release (Dr/Ec) 162 mg PO DAILY ferrous sulfate 324 mg (65 mg iron) Tablet,Delayed Release (Dr/Ec) 324 mg PO DAILY cholecalciferol (vitamin D3) 125 mcg (5,000 unit) Tablet 125 mcg PO DAILY hydrocodone-acetaminophen 5-325 mg tablet 1 tab PO Q4H PRN (Reason: pain) 4 Days Qty: 14 0RF Hold Instructions: Order Completed atorvastatin 20 mg tablet 20 mg PO DAILY Patient Comments: TAKE 1 TABLET BY MOUTH DAILY AT BEDTIME. FOR CHOLESTEROL bupropion HCl 150 mg tablet extended release 24 hr 150 mg PO DAILY Patient Comments: TAKE 1 TABLET BY MOUTH EVERY DAY Trulicity 0.75 mg/0.5 mL pen injector 1.5 mg SUBCUT .week Patient Comments: INJECT 0.75 MG SUBCUTANEOUSLY ONE TIME A WEEK. Primary Care Provider: Frank Pearson Referrals: Frank Pearson MD [Primary Care Provider] - 3-5 Days if not improving Activity Restrictions/Additional Instructions: Plenty of fluids and rest. Follow-up with your doctor if not improving. Return if worse. All your labs, chest x-ray and EKG today were unremarkable. Disposition Disposition: Home, Self Care
[2022-08-07 04:43] LABS: Absolute Lymphocyte Count 2.67 X10^3/uL (0.83-4.51); Absolute Neutrophil Count 5.2 X10^3/uL (2.0-7.7); Basophil# 0.04 X10^3/uL; Basophil% 0.5 % (0-1); Eosinophil# 0.31 X10^3/uL; Eosinophils% 3.6 % (0-5); Hematocrit 38.8 % (37-47); Hemoglobin 12.5 g/dL (12.0-15.0); Lymphocyte # 2.67 X10^3/ul (0.83-4.51); Lymphocyte % 30.7 % (19-41); Mean Corp Hgb Conc 32.2 g/dL (32-36); Mean Corpuscular Hgb 30.6 pg (27.0-32.0); Mean Corpuscular Volume 94.9 fL (81-99); Mean Platelet Vol. 9.6 fl (6.2-12.0); Monocyte# 0.48 X10^3/uL; Monocyte% 5.5 % (0-10); NRBC Flagged by Analyzer 0 % (0-5); Neutrophil # 5.17 X10^3/uL (2.7-7.7); Neutrophil % 59.2 % (47-70); Platelet Count 240 K/mm3 (150-450); RBC Distribution Width CV 13.1 % (11.6-14.6); RBC Distribution Width SD 45.5 fl (35.1-43.9); Red Blood Count 4.09 M/mm3 (4.2-5.4); White Blood Count 8.7 K/mm3 (4.4-11.0)
[2022-08-07 05:13] LABS: Anion Gap 4 (5-15); BUN 17 mg/dL (7-18); BUN/Creat Ratio 18.7 RATIO (10-20); Calcium,Total 8.9 mg/dL (8.5-10.1); Chloride 107 mmol/L (98-107); Creatinine, Serum 0.91 mg/dL (0.55-1.02); EST Glomerular Filtration Rate 70 mL/min (>60); Est Glom Filt Rate - Afr Amer 85 mL/min (>60); Estimated Creatinine Clearance 71.55 ml/min; Glucose 116 mg/dL (74-106); Potassium 3.9 mmol/L (3.5-5.1); Sodium Level 140 mmol/L (136-145); Thyroid Stim Hormone (TSH) 1.69 uIU/mL (0.358-3.74); Troponin-I HS 4 pg/mL (3.0-54.0)
[2022-08-07 05:34] VITALS: BP 98/56; PULSE 71; RESP 19; O2SAT 96
== END 2022-08-07 05:34 | disposition home or self-care (01) ==
PROVIDERS: Emergency Provider Emergency Medicine; PCP Family Medicine; Visit Provider Emergency Medicine
DX: R00.2 Palpitations (principal); E11.9 Type 2 diabetes mellitus without complications; R07.9 Chest pain, unspecified; E78.5 Hyperlipidemia, unspecified; E03.9 Hypothyroidism, unspecified
CPT/HCPCS: 71045; 80048; 84443; 84484; 85025; 93005; 99284; A4216

== ENCOUNTER 2023-07-17 09:30 | Outpatient (RCR) | payer MEDICAID, SELFPAY ==
--- NOTE | 2023-05-22 10:45 | HP.PTEVAL_ITS ---
Patient's Visit Information Visit Information Visit Information: TOY JORDAN is a 48 year old F referred to Physical Therapy by Dr. Paulette Byrant MD with a diagnosis of MIXED URINARY INCONTINENCE. Date of Evaluation: 04/29/23 Physical Therapist: Rosy Zuleta PT, Cert MDT Visit Plan Frequency: 1x/Week Duration: 2-4 Months Plan: PF THERAPY FOR STRENGTHENING AND ENDURANCE TRAINING. URINARY URGE AND FREQUENCY EDUCATION. HEALTHY BLADDER HABIT EDUCATION. TRAINING IN COORDINATION OF PELVIC FLOOR MUSCULATURE WITH HIP AND CORE (TRANSVERSE ABDOMINUS) MUSCULATURE. CORE STRENGTHENING. TRISTAN LE ROM, STRETCHING AND STRENGTHENING. TRAINING IN ABDOMINAL CAVITY PRESSURE MGMT WITH ADL'S. POSTURE TRAINING. HEP. 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 Disability: NO Present symptoms: PATIENT REPORTS THE MAIN SYMPTOM SHE IS HERE FOR IS URGENCY AND NOT MAKING IT TO THE BATHROOM IN TIME. ALSO URINARY INCONTINENCE WITH BENDING AND LIFTING. Present since: 1998 Pain Scale: N/A Is it getting better, worse or staying the same: STAYING THE SAME. THE URGENCY HAS IMRPOVED WITH THE MEDICINE BUT THE LEAKING IS STILL THE SAME. Commenced as a result of: CHILDBIRTH Symptoms at onset: STARTED WITH 2ND CHILD, GOT PARTIALLY BETTER THEN WORSE WHEN HAD TWINS IN 2015. Worse: DRINKING NORMAL AMT OF WATER, RISING FROM SITTING, RISING FROM THE FLOOR, PICKING THINGS UP, SITTING UP FROM BED Better: GEMTESA Disturbed sleep: GETTING UP ONE TO TWO TIMES AT NIGHT TO URINATE. Previous history/Previous treatment: PATIENT REPORTS SHE HAS HAD MEDICATIONS IN THE PAST TOO THAT HELPED. WEIGHT LOSS ALSO HELPED. Treatment this episode: GEMTESA Coughing/sneezing/straining: POSITIVE FOR UI Gait: NORMAL - SCIATICA. DOES NOT USE ASSISTIVE DEVICES. How long can you delay the need to urinate: UNABLE Prolapse (Falling out feeling): NO Frequency of Urination: EVERY HOUR Ability to stop urine flow: NO Ability to initiate urine stream: YES Dyspareunia: NO Bowel Incontinence: NO Accidents: NO Unexplained weight loss: NO Imaging: PATIENT REPORTS RECENT TESTING SHOWING NORMAL EMPTYING OF HER BLADDER. PMH/Recent major surgery: SCIATICA - PAIN MGMT - INJECTIONS - STENOSIS AND SLIPPED DISCS. HYPOTHYROIDISM, NIDDM, DEPRESSION, ADHD, BINGE EATING DISORDER, H IGH CHOLESTEROL, ACID REFLUX. 2 GASTRIC SURGERIES 2010 AND JAN 2023 FOR WEIGHT LOSS. CERVICAL SPINAL STENOSIS. PAD USE: 2 OVERNIGHT UI PADS A DAY. OTHER: PATIENT REPORTS HER LAST PELVIC EXAM 09/25/23 WAS NORMAL AND NOT PAINFUL. Objective Objective: Sitting/Standing Posture: ANTERIOR PELVIC TILT. INCREASED LORDOSIS. NO RELEVANT LATERAL SHIFT. Active Correction of posture: NE. DOES NOT MAINTAIN. Other Observations: INDEP GAIT AND TRANSFERS WITHOUT UE ASSIST. Sensory deficit: DECREASED LIGHT TOUCH SENSATION L ANTERIOR THIGH COMPARED TO R. ROM deficit: TRISTAN HIP ADDUCTOR, HIP ROTATOR, HS AND CALF TIGHTNESS. Motor deficit: TRISTAN LE'S 5/5 EXCEPT HIP ROTATORS 4/5. INTERNAL MANUAL VAGINAL STRENGTH TESTING REVEALS 3/5 PELVIC FLOOR STRENGTH X 5 SEC X 5 REPS. Reflexes: 2/3 TRISTAN LE'S. Dural Signs: NEGATIVE TRISTAN LE'S. Lumbar mvmt loss: flex - NIL ext - MOD R SG - MIN L SG - MIN PATIENT REPORTS THAT BENDING TO THE RIGHT HURT A LITTLE BIT BUT NOT ENOUGH TO CAUSE AN ISSUE. Core strength: POOR Palpation: NO ACUTE LUMBAR HIP OR PELVIC FLOOR TENDERNESS. NO PELVIC FLOOR HIGH TONE OR TRIGGER POINTS DETECTED. FUNCTIONAL SCREEN: Incontinence Impact Questionnaire Score: 13 Urogenital Distress Inventory Score: 10 Goals Goal 1:: DECREASE URINARY LEAKAGE EPISODES TO 3 OR LESS PER DAY Goal Time Frame: 8-12 Weeks Goal 2:: PATIENT WILL SUCCESSFULLY DELAY VOIDING LONG NEEDED WHEN URGENCY OCCURS TO SUCCESSFULLY MAKE IT TO THE BATHROOM AT LEAST 50% OF THE TIME Goal Time Frame: 6-8 Weeks Goal 3:: PATIENT WILL DEMONSTRATE/COMMUNICATE 10 CONSISTENT AND CONSECUTIVE 5 SECOND PELVIC FLOOR MUSCLE CONTRACTIONS TO DEMONSTRATE IMPROVED PELVIC FLOOR STRENGTH AND ENDURANCE. Goal Time Frame: 8-12 Weeks Goal 4:: DEVELOP HEALTHY FLUID INTAKE HABITS WITH FLUID INTAKE OF ? BODY WEIGHT IN OUNCES PER DAY AND 2/3 BEING WATER. Goal Time Frame: 2-4 Weeks Goal 5:: NORMALIZE VOIDING FREQUENCEY TO EVERY 2 TO3 HOURS. Goal Time Frame: 4-6 Weeks Goal 6:: PATIENT WILL BE INDEP WITH A HEP/HOME INSTRUCTIONS FOR CONTINUED IMPROVEMENT ONCE FORMAL PHYSICAL THERAPY CONCLUDES. Goal Time Frame: 8-12 Weeks Rehabilitation Potential Physical Therapy Diagnosis: LUMBAR AND HIP STIFFNESS. CORE, HIP AND PELVIC FLOOR WEAKNESS. URGE INCONTINENCE, STRESS INCONTINENCE AND INCREASED URINARY FREQUENCEY. Rehabilitation Potential: Fair Anticipated Interventions Patient/Client Instruction: Educate patient on: Condition, Plan of Care and Risk Factors For the Purpose of:: To improve self management Therapeutic Exercise to Include: Strength training, Endurance training, Coordination, Postural training, Flexibilty training and Neuromotor development For the Purpose of:: To improve muscle performance and motor function, To improve ability of physical actions for home/community/work/leisure and To increase flexibility/ROM Text: Thank you for the opportunity to evaluate your patient. For Medicare and Medicare HMO plans, please review the plan of care and approve it. It will need to be FAXED BACK to us at [phone] for Medicare purposes. For Medicare only, by signing this I certify the plan of care. Please let me know if there are questions or concerns regarding this plan of care. Physician Signature: Date:
--- NOTE | 2023-07-17 12:25 | HP.PTDCSUM ---
Discharge Summary D/C summary: It has been my pleasure to treat TOY JORDAN referred by Dr. Paulette Bryant MD, with the diagnosis of MIXED URINARY INCONTINENCE for a total of 9 visit(s). Discharge Date: 07/17/23 Please see the following information for a summary of their discharge status. Subjective Subjective: PATIENT MORE URGENCY THE LAST WEEK THAT SHE RELATES TO EATING A LOT OF SPICY FOODS LEADING TO MORE WATER INTAKE. ALSO REPORTS SOME URINARY LEAKING WITH COUGHING BUT GETTING BETTER - SINUS INFECTION IS CLEARING UP. EXHUASTED - CP MACHINE MASK BROKE. Overall Improvement % Improvement: 75 Objective Objective/Function: HIP IR WEAKNESS EVIDENT WITH EX TODAY BUT TOLERATED WELL. CUEING FOR PROPER POSTURE CONTROL NEEDED DURING EX. FUNCTIONAL SCREEN: Incontinence Impact Questionnaire Score: 4 (13 at eval) Urogenital Distress Inventory Score: 4 (10 at eval) Goals Goal 1:: DECREASE URINARY LEAKAGE EPISODES TO 3 OR LESS PER DAY Goal Progress: Goal Met Goal 2:: PATIENT WILL SUCCESSFULLY DELAY VOIDING LONG NEEDED WHEN URGENCY OCCURS TO SUCCESSFULLY MAKE IT TO THE BATHROOM AT LEAST 50% OF THE TIME Goal Progress: Goal Met Goal 3:: PATIENT WILL DEMONSTRATE/COMMUNICATE 10 CONSISTENT AND CONSECUTIVE 5 SECOND PELVIC FLOOR MUSCLE CONTRACTIONS TO DEMONSTRATE IMPROVED PELVIC FLOOR STRENGTH AND ENDURANCE. Goal Progress: Goal Met Goal 4:: DEVELOP HEALTHY FLUID INTAKE HABITS WITH FLUID INTAKE OF ? BODY WEIGHT IN OUNCES PER DAY AND 2/3 BEING WATER. Goal Progress: Progressing Goal 5:: NORMALIZE VOIDING FREQUENCEY TO EVERY 2 TO3 HOURS. Goal Progress: Goal Met Goal 6:: PATIENT WILL BE INDEP WITH A HEP/HOME INSTRUCTIONS FOR CONTINUED IMPROVEMENT ONCE FORMAL PHYSICAL THERAPY CONCLUDES. Goal Progress: Goal Met Plan Plan: D/C TO INDEP HEP. PATIENT AGREEABLE. D/C Information d/c sentence: If there are questions or concerns regarding this patient's physical therapy, please feel free to call me at [phone]. Thank you for the referral of this patient. Sincerely, Rosy Zuleta, PT, Cert MDT Balance/Gait/Functional tests Improvement % Improvement: 75
== END 2023-07-17 19:00 | disposition home or self-care (01) ==
LOC: PT 09:30
PROVIDERS: PCP Family Medicine; Referring Provider Urology; Visit Provider Urology
DX: N39.46 Mixed incontinence (principal)
CPT/HCPCS: 97162; 97530

== ENCOUNTER → 2023-08-18 | Outpatient (CLI) | payer MEDICAID, SELFPAY ==
--- NOTE | 2023-08-18 18:16 | CT_ITS ---
STUDY: CT FACIAL BONES WITHOUT CONTRAST REASON FOR EXAM: Female, 48 years old. SINUSITIS RADIATION DOSAGE (If Supplied By Facility): CTDIvol = ( 33.06 ) mGy, DLP = ( 879.30 ) mGycm TECHNIQUE: The patient was scanned in a multi detector CT scanner. Sagittal and coronal images were reconstructed. Individualized dose optimization techniques were used for this CT. COMPARISON: None. FINDINGS: Scattered bilateral cervical lymphadenopathy measuring less than 1.5 cm transverse dimension. Normal orbital bender and orbital contents. Normal nasal bones and anterior nasal spine. Normal facial bones. There is no demonstrated fracture. There is opacification of the left maxillary sinus. Mucosal thickening of the anterior inferior aspect of the right maxillary sinus. Mucosal thickening of the ethmoid sinuses. There is evidence of a prior surgical intervention involving the superior medial bender of both maxillary sinuses. There is patency of the ostiomeatal complexes. CT/Sinus/Facial Bone IMPRESSION: Partial opacification of the maxillary sinuses left greater than right and mucosal thickening of the ethmoid sinuses. Prior resection of the superior medial bender of both maxillary sinuses. Electronically Signed: Tylor Paulson MD at 10:01 EDT ,
== END | disposition home or self-care (01) ==
LOC: CT 18:13
PROVIDERS: PCP Family Medicine; Visit Provider Otolaryngology
DX: J32.8 Other chronic sinusitis (principal)
CPT/HCPCS: 70486